=== PATIENT | female | born 1975 | race Asian ===

== ENCOUNTER → 2018-02-06 07:32 | Outpatient (CLI) | payer OTHER, SELFPAY ==
[2018-02-06 08:32] LABS: Add Manual Diff / Slide Review NO; Basophils Percent Auto 0.5 % (0-2); Eosinophils Percent Auto 5.9 % (2-4); Hematocrit 40.2 % (36-46); Mean Corpuscular HGB Conc 34.8 % (30-36); Mean Corpuscular Hemoglobin 29.3 PG (26-34); Mean Corpuscular Volume 84.2 fL (80-100); Monocytes Percent Auto 6.9 % (3-14); Neutrophils Absolute Auto 2500 /uL (3000-5900); Neutrophils Percent Auto 54.7 % (50-75); Platelet Count 247 X10^3/uL (150-400); Red Blood Cell Count 4.78 X10^6/uL (4.0-5.2); Red Cell Distribution Width 12.2 % (11.6-14.8); White Blood Cell Count 4.5 X10^3/uL (4.5-11.0)
[2018-02-06 08:43] LABS: Alanine Aminotransferase 33 IU/L (9-52); Albumin 4.9 g/dL (3.5-5.0); Albumin Globulin Ratio 1.4 (1.0-2.8); Alkaline Phosphatase 53 U/L (38-126); Aspartate Aminotransferase 24 IU/L (14-36); BUN Creatinine Ratio 16.7 (6-22); Bilirubin Total 0.5 mg/dL (0.2-1.3); Blood Urea Nitrogen 10 mg/dL (7-17); Calcium 9.5 mg/dL (8.4-10.2); Carbon Dioxide 24 mmol/L (22-32); Chloride 102 mmol/L (98-107); Estimated Glomerular Filt Rate > 60.0 mL/min (>60); Globulin 3.4 g/dL (1.7-4.1); Glucose 151 mg/dL (70-100); HEMOLYSIS < 15 (0-50); Potassium 4.1 mmol/L (3.4-5.1); Sodium 141 mmol/L (137-145); Total Protein 8.3 g/dL (6.3-8.2)
[2018-02-06 09:16] LABS: Ferritin 54.5 ng/mL (6.27-137)
[2018-02-06 09:21] LABS: HEMOLYSIS < 15 (0-50); Iron 84 ug/dL (37-170)
[2018-02-06 09:33] LABS: Percent Iron Saturation 19 % (15-50); Total Iron Binding Capacity 434 ug/dL (265-497); Transferrin 329 mg/dL (206-381)
[2018-02-06 09:53] LABS: TSH w/ Reflex to FT4 1.94 uIU/mL (0.47-4.68)
[2018-02-06 10:04] LABS: Hepatitis B Surface Antigen NEGATIVE s/c (NEGATIVE)
[2018-02-06 10:12] LABS: Hep C Virus Ab w/Reflex Quant NEGATIVE s/c (NEGATIVE)
[2018-02-07 21:32] LABS: Almond Allergy IgE 0.15 kU/L (< 0.10); Cashew nut Allergy IgE < 0.10 kU/L (< 0.10); Codfish Allergy IgE < 0.10 kU/L (< 0.10); Cow Milk Allergy IgE < 0.10 kU/L (< 0.10); Egg Whites IgE < 0.10 kU/L (< 0.10); Hazelnut Allergy IgE < 0.10 kU/L (< 0.10); Salmon Allergy IgE < 0.10 kU/L (< 0.10); Scallop Allergy IgE 0.24 kU/L (< 0.10); Sesame seed Allergy IgE 0.27 kU/L (< 0.10); Shrimp Allergy Class 3; Shrimp Allergy IgE 4.61 kU/L (< 0.10); Soybean Allergy IgE 0.12 kU/L (< 0.10); Tuna Allergy IgE < 0.10 kU/L (< 0.10); Walnut Allery IgE < 0.10 kU/L (< 0.10); Wheat Allergy IgE 0.26 kU/L (< 0.10)
[2018-02-09 08:30] LABS: ANA Screen NEGATIVE (Negative); DNA Antibody Crithidia IFA NEGATIVE (Negative); Rheumatoid Factor <14 IU/mL; Sjogren Antiboday SS-A <1.0 NEG AI (<1.0 NEGATIVE); Sjogren Antiboday SS-B <1.0 NEG AI (<1.0 NEGATIVE); Sm Antibody <1.0 NEG AI (<1.0 NEGATIVE); Sm/RNP Antibody <1.0 NEG AI (<1.0 NEGATIVE)
== END ==
PROVIDERS: Visit Provider Physician Assistant
DX: L29.8 Other pruritus (principal)
CPT/HCPCS: 36415; 80053; 82728; 83540; 83550; 84443; 85025; 86003; 86038; 86430; 86803; 87177; 87340; 87633